=== PATIENT | female | born 1975 | race Caucasian/White ===

== ENCOUNTER 2017-04-16 13:19 | Emergency (ER) | payer MEDICAID ==
--- NOTE | 2017-04-16 13:40 | Emergency Department Record ---
History of Present Illness - General Chief Complaint: Chest Pain Stated Complaint: CHEST PAIN Time Seen by Provider: 04/16/17 13:27 Source: Patient Mode of Arrival: Ambulatory Limitations: No limitations - History of Present Illness Initial Comments: 41 yo female presents with palpitations, chest discomfort, and some cough. She is a smoker with asthma. He asthma has been well controlled. She has had symptoms the last 3 days. He gets palpitations in the form of a heavy or skipped beat. She has been having a tightness first on the right side of the chest and now it is on the left. She feels short of breath with walking up stairs. She noticed this in her home that is a two story house. She reports a family history of CAD with a brother with first NV at 31 with current stents, Mother with CAD with first NV at 42 and an uncle in his 30's (35), multiple cousins on Mom's side of the family with history of CAD or an NV. No history of cardiac testing. PCP is Dr Reno in [place]. Complaint: Other Onset/Timin -: Days(s) Pain Location: Substernal, Other Pain Radiation: Neck Quality: Sharp, Tightness Consistency: Intermittent Improves With: Nothing Worsens With: Exertion Anginal Symptoms: Nausea Other Symptoms: Cough - Related Data Home Medications Medication Instructions Recorded Confirmed Last Taken Albuterol Sulfate 0.083% [Neb] 1 inh INH ASDIR 04/16/17 04/16/17 Unknown Hyoscyamine Sulfate [Levbid] 0.375 mg PO ASDIR 04/16/17 04/16/17 Unknown Tiotropium [place] [Spiriva] 1 inh INH ASDIR 04/16/17 04/16/17 Unknown Allergies Allergy/AdvReac Type Severity Reaction Status Date / Time cefazolin sodium [From [facility]] Allergy RASH Verified 04/16/17 13:27 Travel Screening - Travel/Exposure Within Last 30 Days Have you traveled within the last 30 days?: No Review of Systems Constitutional: Denies: Chills, Fever, Malaise, Weakness Eyes: Denies: Eye discharge, Eye pain, Photophobia, Vision change ENT: Denies: Congestion, Throat pain Respiratory: Reports: Cough, Dyspnea. Denies: Hemoptysis, Stridor, Wheezes Cardiovascular: Reports: Chest pain, Palpitations. Denies: Arrhythmia, Syncope Endocrine: Denies: Fatigue, Polydipsia, Polyuria Gastrointestinal: Denies: Abdominal pain, Diarrhea, Nausea, Vomiting Genitourinary: Denies: Dysuria, Urgency Musculoskeletal: Reports: Arthralgia (right shoulder), Myalgia. Denies: Joint swelling Skin: Denies: Bruising, Change in color, Rash Neurological: Denies: Headache, Numbness, Weakness Psychiatric: Denies: Anxiety Hematological/Lymphatic: Denies: Blood Clots, Easy bleeding, Easy bruising, Swollen glands Past Medical History - SOCIAL HISTORY Smoking Status: Current every day smoker - RESPIRATORY Hx Respiratory Disorders: Yes Hx Asthma: Yes - CARDIOVASCULAR Hx Cardio Disorders: No - NEURO Hx Neuro Disorders: No - GI Hx GI Disorders: No - Hx Genitourinary Disorders: No - ENDOCRINE Hx Endocrine Disorders: No - MUSCULOSKELETAL Hx Musculoskeletal Disorders: No - PSYCH Hx Psych Problems: No - HEMATOLOGY/ONCOLOGY Hx Hematology/Oncology Disorders: Yes Hx Cancer: Yes (cervical) Family Medical History Hx Heart Disease: Mother, Brother/Sister, Grandparents Physical Exam - General General Appearance: Alert, Oriented x3, Cooperative, No acute distress Limitations: No limitations - Head Head exam: Normal inspection - Eye Eye exam: Normal appearance, PERRL. negative: Conjunctival injection, Periorbital swelling - ENT ENT exam: Normal exam, Mucous membranes moist Ear exam: Normal external inspection Nasal Exam: Normal inspection Mouth exam: Normal external inspection Teeth exam: Normal inspection Throat exam: Normal inspection - Neck Neck exam: Normal inspection, Full ROM. negative: Tenderness - Respiratory Respiratory exam: Normal lung sounds bilaterally. negative: Respiratory distress - Cardiovascular Cardiovascular Exam: Regular rate, Normal rhythm, Normal heart sounds Peripheral Pulses: 2+: Radial (R), Radial (L) - GI/Abdominal GI/Abdominal exam: Soft - Rectal Rectal exam: Deferred - exam: Deferred - Extremities Extremities exam: Normal inspection, Full ROM, Normal capillary refill. negative: Tenderness - Back Back exam: Reports: Normal inspection, Full ROM. Denies: Muscle spasm, Rash noted, Tenderness - Neurological Neurological exam: Alert, Normal gait, Oriented X3, Reflexes normal - Psychiatric Psychiatric exam: Normal affect, Normal mood. negative: Anxious, Depressed - Skin Skin exam: Dry, Intact, Normal color, Warm Course - Reevaluation(s) Reevaluation #1: The labs were reviewed. No acute changes on the CBC,CMP,Troponin,BNP The CXR was reviewed. 04/16/17 14:28 Reevaluation #2: I SW Dr Peterson of cardiology at [facility] He accepts the patient for transfer due to symptoms and strong family history He recommends NPO and start heparin until seen at [facility]. 04/16/17 14:44 Reevaluation #3: Pt informed to remain NPO Waiting for bed placement at [facility] CXR was read as negative for acute process. 04/16/17 15:27 Procedures - EKG Initial Date: 04/16/17 Time: 13:20 EKG: Abnormal EKG (poor r wave progression, NS inv t wave in V2) EKG Detail: NSR rate71, Intervals NL, [place] NL, ST no acute changes, Inverted T wave V2 Medical Decision Making - Lab Data Result diagrams: 04/16/17 13:30 04/16/17 13:48 Disposition Disposition: Transfer Clinical Impression: Chest pain Qualifiers: Chest pain type: unspecified Qualified Code(s): R07.9 - Chest pain, unspecified Disposition: Acute Care Hospital Transfer Transfer To: [facility] Reason For Transfer: chest pain with exertion Accepting Physician: Dr Peterson Time Discussed w/Accepting Physician: 14:47 Condition: (2) Stable Forms: Patient Portal Access Time of Disposition: 14:47
[2017-04-16] MEDS ORDERED: ASPIRIN 325 MG TABLET PO ONE (13:42)
[2017-04-16 13:51] LABS: BASO % 0.3 % (0-6); EOS % 0.7 % (0-6); GRAN % 61.9 % (47-80); HEMATOCRIT 39.7 % (35.0-47.0); HEMOGLOBIN 12.9 gm/dl (11.6-16.0); LYMPH % 27.9 % (16-45); MEAN CORPUSCULAR HEMOGLOBIN 29.3 pg (27-33); MEAN CORPUSCULAR HGB CONC 32.5 g/dl (32-36); MEAN PLATELET VOLUME 12.4 fl (7.4-10.4); MONO % 9.2 % (0-9); PLATELET COUNT 220 K/uL (130-400); RED BLOOD COUNT 4.41 M/uL (3.80-5.40); RED CELL DISTRIBUTION WIDTH 14.2 % (11.5-14.5); WHITE BLOOD COUNT W/O DIFF 6.8 K/uL (4.2-12.2)
[2017-04-16 14:05] LABS: ALB/GLOB RATIO 1.5 (1.1-1.8); ALBUMIN 4.5 gm/dL (3.5-5.0); ALKALINE PHOSPHATASE 59 U/L (38-126); ALT/SGPT 18 U/L (9-52); ANION GAP 5.8 (7-16); AST/SGOT 17 U/L (14-36); BILIRUBIN,TOTAL 0.68 mg/dL (0.2-1.3); BLOOD UREA NITROGEN 9 mg/dL (7-17); CARBON DIOXIDE 24.2 mmol/L (22-30); CREATINE PHOSPHOKINASE < 20 U/L (30-135); CREATININE 0.7 mg/dL (0.52-1.04); EST GLOMERULAR FILTRATION RATE > 60 ml/min; GLUCOSE,RANDOM 96 mg/dL (70-110); TOTAL PROTEIN 7.6 gm/dL (6.3-8.2)
[2017-04-16 14:06] LABS: INR 1.06; PARTIAL THROMBOPLASTIN TIME 28.6 SECONDS (24.5-39.1)
[2017-04-16 14:18] LABS: CKMB 0.2 ug/L (0-6); TROPONIN I < 0.012 ng/mL (0.00-0.034)
[2017-04-16] MEDS ORDERED: HEPARIN SODIUM/D5W 25,000 UNITS/500 ML BAG IV SCH (14:45)
[2017-04-16] MEDS ORDERED: HEPARIN SODIUM 1000 UNIT/1 ML 10ML VIAL IVP ONE (14:45)
--- NOTE | 2017-04-21 10:58 | RADIOLOGY REPORT ---
EXAM: CHEST, TWO VIEWS HISTORY: CHEST PAIN. TECHNIQUE: Frontal and lateral views of the chest were performed. FINDINGS: The heart size is normal. No pulmonary vascular congestion. No infiltrate or pleural effusion. The osseous structures are normal. IMPRESSION: NO ACUTE DISEASE PROCESS. JOB NUMBER: [id number] MTDD
== END 2017-04-16 16:41 | disposition short-term general hospital (02) ==
LOC: ER 13:19
DX: R07.2 Precordial pain (principal); R05 Cough; R06.02 Shortness of breath; M54.2 Cervicalgia; R11.0 Nausea; F17.210 Nicotine dependence, cigarettes, uncomplicated; Z82.49 Family history of ischemic heart disease and other diseases of the circulatory system
CPT/HCPCS: 71020; 80053; 82550; 82553; 83880; 84484; 85025; 85610; 85730; 93005; 93010; 96365; 96366; 96375; 99285

== ENCOUNTER 2018-05-14 02:48 | Emergency (ER) | payer SELFPAY ==
--- NOTE | 2018-05-14 03:12 | Emergency Department Record ---
History of Present Illness - General Chief complaint: Extremity Problem Stated complaint: "FEEL LIKE STUFF IS MOVING AROUND IN MY LEG" Time Seen by Provider: 05/14/18 03:07 Source: Patient Mode of Arrival: wheeled walker Limitations: No limitations - History of Present Illness Initial comments: 42 yo female presents to ED for evaluation of possible DVT to the left posterior leg. Patient reports the sensation that "something is moving below the skin of her left posterior leg for the past several days and is concerned that she may have a DVT. Patient denies denies fevers, chills, or trauma to the left lower extremity, denies previous DVT or swelling to the lower extremity , and denies health problems at her baseline. MD Complaint: Extremity pain Onset/Timin -: Month(s) Location: Left History of Same: No -: Yes Myalgia Radiation: None Quality: Other Consistency: Constant Improves with: Nothing Worsens with: Nothing Associated Symptoms: Denies other symptoms - Related Data Home Medications Medication Instructions Recorded Confirmed Last Taken Citicoline Sodium [Cerenx] 500 mg PO DAILY 05/14/18 05/14/18 Unknown Cyanocobalamin (Vitamin B-12) 1,000 mcg PO DAILY 05/14/18 05/14/18 Unknown [Vitamin B-12] Vitamin E Mixed [Vitamin E] 1,000 unit PO DAILY 05/14/18 05/14/18 Unknown Allergies Allergy/AdvReac Type Severity Reaction Status Date / Time cefazolin sodium [From [facility]] Allergy RASH Verified 04/16/17 13:27 Travel Screening - Travel/Exposure Within Last 30 Days Have you traveled within the last 30 days?: No - Travel/Exposure Within Last Year Have you traveled outside the [place] in the last year?: No - Additonal Travel Details Have you been exposed to anyone with a communicable illness?: No - Travel Symptoms Symptom Screening: None Review of Systems Constitutional: Denies: Chills, Fever, Malaise, Night sweats Eyes: Denies: Eye discharge, Eye pain ENT: Denies: Congestion, Ear pain, Epistaxis Respiratory: Denies: Cough, Dyspnea Cardiovascular: Denies: Chest pain, Dyspnea on exertion Endocrine: Denies: Fatigue, Heat or cold intolerance Gastrointestinal: Denies: Abdominal pain, Nausea, Vomiting Genitourinary: Denies: Incontinence, Retention Musculoskeletal: Reports: Other. Denies: Arthralgia, Back pain, Gout, Joint swelling Skin: Denies: Bruising, Change in color Neurological: Denies: Abnormal gait, Confusion, Headache, Seizure Psychiatric: Denies: Anxiety Hematological/Lymphatic: Denies: Anemia, Blood Clots Past Medical History - SOCIAL HISTORY Smoking Status: Current every day smoker Alcohol Use: None Drug Use Detail:: Marijuana - RESPIRATORY Hx Respiratory Disorders: Yes Hx Asthma: Yes - CARDIOVASCULAR Hx Cardio Disorders: No - NEURO Hx Neuro Disorders: No - GI Hx GI Disorders: No - Hx Genitourinary Disorders: No - ENDOCRINE Hx Endocrine Disorders: No - MUSCULOSKELETAL Hx Musculoskeletal Disorders: No Comment:: osteoarthritis - PSYCH Hx Psych Problems: No - HEMATOLOGY/ONCOLOGY Hx Hematology/Oncology Disorders: Yes Hx Cancer: Yes (cervical) Comment:: "working on genetic testing at [facility] [place] and of for distonia" Family Medical History Any Significant Family History?: No Hx Heart Disease: Mother, Brother/Sister, Grandparents Physical Exam - General General Appearance: Alert, Oriented x3, Cooperative, No acute distress Limitations: No limitations - Head Head exam: Atraumatic, Normocephalic, Normal inspection Head exam detail: negative: Abrasion, Contusion, Cole's sign, General tenderness, Hematoma, Laceration - Eye Eye exam: Normal appearance. negative: Conjunctival injection, Periorbital swelling, Periorbital tenderness, Scleral icterus - ENT Ear exam: negative: Auricular hematoma, Auricular trauma Nasal Exam: negative: Active bleeding, Discharge, Dried blood, Foreign body Mouth exam: negative: Drooling, Laceration, Muffled voice, Tongue elevation - Neck Neck exam: Normal inspection. negative: Meningismus, Tenderness - Respiratory Respiratory exam: Normal lung sounds bilaterally. negative: Rales, Respiratory distress, Rhonchi, Stridor - Cardiovascular Cardiovascular Exam: Regular rate, Normal rhythm, Normal heart sounds - GI/Abdominal GI/Abdominal exam: Soft. negative: Pulsatile mass, Rebound, Rigid, Tenderness - Rectal Rectal exam: Deferred - exam: Deferred - Extremities Extremities exam: Normal inspection. negative: Calf tenderness, Pedal edema, Tenderness - Back Back exam: Denies: CVA tenderness (R), CVA tenderness (L) - Neurological Neurological exam: Alert, Normal gait, Oriented X3 - Psychiatric Psychiatric exam: Anxious - Skin Skin exam: Normal color. negative: Abrasion Type of lesion: negative: abrasion Course Vital Signs 05/14/18 03:05 Temperature 98.2 F Pulse Rate [ 96 H Pulse Ox Probe] Respiratory 20 Rate Blood Pressure 142/107 [Left Arm] Pulse Ox 97 - Reevaluation(s) Reevaluation #1: 05/14/18 03:38 D-dimer is negative for DVT. Patient was updated on her result, and appears negative for an acute process at this time. Disposition Disposition: Discharge Clinical Impression: Formication Disposition: Home, Self-Care Condition: (2) Stable Additional Instructions: Return to ED if your symptoms worsen or if you have any concerns. Follow-up with your family doctor in 3-5 days as directed. Forms: Patient Portal Access Time of Disposition: 03:39 Quality - Quality Measures Quality Measures: N/A - Blood Pressure Screening Does Patient Have Any of the Following: No Blood Pressure Classification: Pre-Hypertensive BP Reading Systolic Measurement: 126 Diastolic Measurement: 87 Screening for High Blood Pressure: < Pre-Hypertensive BP, F/U Documented > [ G8950] Pre-Hypertensive Follow-up Interventions: Referral to alternative/primary care provider.
== END 2018-05-14 03:43 | disposition home or self-care (01) ==
LOC: ER 02:48
DX: R20.2 Paresthesia of skin (principal); M79.662 Pain in left lower leg; F17.210 Nicotine dependence, cigarettes, uncomplicated
CPT/HCPCS: 85379; 99283

== ENCOUNTER 2018-05-14 12:35 | Emergency (ER) | payer SELFPAY ==
[2018-05-14] MEDS: LORAZEPAM 2 MG/ML VIAL IV ONE (13:29)
[2018-05-14 13:43] LABS: BASO % 0.4 % (0-6); EOS % 1.2 % (0-6); HEMOGLOBIN 13.4 gm/dl (11.6-16.0); MEAN CELL VOLUME 88.9 fl (81-97); MEAN CORPUSCULAR HEMOGLOBIN 29.8 pg (27-33); MEAN CORPUSCULAR HGB CONC 33.5 g/dl (32-36); MEAN PLATELET VOLUME 12.9 fl (7.4-10.4); MONO % 11.4 % (0-9); PLATELET COUNT 171 K/uL (130-400); RED CELL DISTRIBUTION WIDTH 13.1 % (11.5-14.5); WHITE BLOOD COUNT W/O DIFF 4.8 K/uL (4.2-12.2)
[2018-05-14 13:57] LABS: BLOOD UREA NITROGEN 8 mg/dL (6-20); CREATININE 0.6 mg/dL (0.5-0.9); EST GLOMERULAR FILTRATION RATE > 60 mL/min
[2018-05-14 14:00] LABS: GLUCOSE,RANDOM 94 mg/dL (74-109)
[2018-05-14 17:05] LABS: THYROXINE (T4) 7.09 ug/dL (4.5-11.7)
--- NOTE | 2018-05-14 17:27 | Emergency Department Record ---
Anxiety - General Chief Complaint: Anxiety Stated Complaint: POSS STROKE Time Seen by Provider: 05/14/18 13:05 Source: Patient, Family Mode of Arrival: Wheelchair Limitations: No limitations - History of Present Illness Initial Comments: pt c/o insomnia, difficulty talking, anxiety. she is being worked up for chorea and dystonia MD Complaint: Anxiety -: Unknown Symptoms: Dry mouth, Extremity numbness/tingling, Other Place: Home Severity: Moderate Quality: Constant Provoking factors: Emotional stress Improves With: Nothing Worsens With: Thinking about event Associated symptoms: Other - Related Data Home Medications: Home Medications Medication Instructions Recorded Confirmed Last Taken Melatonin 2.5 mg PO ASDIR 05/14/18 05/14/18 05/13/18 Allergies/Adverse Reactions: Allergies Allergy/AdvReac Type Severity Reaction Status Date / Time cefazolin sodium [From [facility]] Allergy RASH Verified 05/14/18 12:51 Travel Screening - Travel/Exposure Within Last 30 Days Have you traveled within the last 30 days?: No - Travel/Exposure Within Last Year Have you traveled outside the [place] in the last year?: No - Travel Symptoms Symptom Screening: None Review of Systems Reviewed: No additional complaints except as noted below Constitutional: Reports: As per HPI. Denies: Chills, Fever, Malaise, Night sweats, Weakness, Weight change Eyes: Reports: As per HPI. Denies: Eye discharge, Eye pain, Photophobia, Vision change ENT: Reports: As per HPI. Denies: Congestion, Dental pain, Ear pain, Epistaxis , Hearing loss, Throat pain Respiratory: Reports: As per HPI. Denies: Cough, Dyspnea, Hemoptysis, Stridor, Wheezes Cardiovascular: Reports: As per HPI. Denies: Arrhythmia, Chest pain, Dyspnea on exertion, Edema, Murmurs, Orthopnea, Palpitations, Paroxysmal nocturnal dyspnea, Rheumatic Fever, Syncope Endocrine: Reports: As per HPI. Denies: Fatigue, Heat or cold intolerance, Polydipsia, Polyuria Gastrointestinal: Reports: As per HPI. Denies: Abdominal pain, Constipation, Diarrhea, Hematemesis, Hematochezia, Melena, Nausea, Vomiting Genitourinary: Reports: As per HPI. Denies: Abnormal menses, Discharge, Dyspareunia, Dysuria, Frequency, Hematuria, Incontinence, Retention, Urgency Musculoskeletal: Reports: As per HPI. Denies: Arthralgia, Back pain, Gout, Joint swelling, Myalgia, Neck pain Skin: Reports: As per HPI. Denies: Bruising, Change in color, Change in hair/ nails, Lesions, Pruritus, Rash Neurological: Reports: As per HPI, Abnormal gait, Paresthesias, Tremors. Denies : Confusion, Headache, Numbness, Seizure, Tingling, Vertigo, Weakness Psychiatric: Reports: As per HPI, Anxiety. Denies: Auditory hallucinations, Depression, Homicidal thoughts, Suicidal thoughts, Visual hallucinations Hematological/Lymphatic: Reports: As per HPI. Denies: Anemia, Blood Clots, Easy bleeding, Easy bruising, Swollen glands Past Medical History - SOCIAL HISTORY Smoking Status: Current every day smoker Alcohol Use: None Drug Use: Heavy Drug Use Detail:: Marijuana - RESPIRATORY Hx Respiratory Disorders: Yes Hx Asthma: Yes - CARDIOVASCULAR Hx Cardio Disorders: No - NEURO Hx Neuro Disorders: No - GI Hx GI Disorders: No - Hx Genitourinary Disorders: No - ENDOCRINE Hx Endocrine Disorders: No - MUSCULOSKELETAL Hx Musculoskeletal Disorders: No Comment:: osteoarthritis - PSYCH Hx Psych Problems: No - HEMATOLOGY/ONCOLOGY Hx Hematology/Oncology Disorders: Yes Hx Cancer: Yes (cervical) Comment:: "working on genetic testing at [facility] [place] and [facility] for distonia" Family Medical History Any Significant Family History?: Yes Hx Heart Disease: Mother, Brother/Sister, Grandparents Physical Exam - General General Appearance: Alert, Oriented x3, Cooperative, Mild distress - Head Head exam: Normal inspection - Eye Eye exam: Normal appearance, PERRL, EOMI Pupils: Normal accommodation - ENT ENT exam: Normal exam, Mucous membranes moist, Normal external ear exam, Normal orophraynx Ear exam: Normal external inspection. negative: External canal tenderness Nasal Exam: Normal inspection. negative: Discharge, Sinus tenderness Mouth exam: Normal external inspection, Tongue normal Teeth exam: Normal inspection. negative: Dental caries Throat exam: Normal inspection. negative: Tonsillar erythema, Tonsillar exudate - Neck Neck exam: Normal inspection, Full ROM. negative: Tenderness - Respiratory Respiratory exam: Normal lung sounds bilaterally. negative: Respiratory distress - Cardiovascular Cardiovascular Exam: Normal rhythm, Normal heart sounds, Tachycardia - GI/Abdominal GI/Abdominal exam: Soft, Normal bowel sounds. negative: Tenderness - Rectal Rectal exam: Deferred - exam: Deferred - Extremities Extremities exam: Normal inspection, Full ROM, Normal capillary refill. negative: Tenderness - Back Back exam: Reports: Normal inspection, Full ROM. Denies: Muscle spasm, Rash noted, Tenderness - Neurological Neurological exam: Alert, CN II-XII intact, Normal gait, Oriented X3 - Psychiatric Psychiatric exam: Normal affect, Normal mood - Skin Skin exam: Dry, Intact, Normal color, Warm Course Vital Signs 05/14/18 05/14/18 12:54 15:34 Temperature 97.6 F Pulse Rate 109 H Pulse Rate [ 99 H Pulse Ox Probe] Respiratory 18 16 Rate Blood Pressure 170/99 Blood Pressure 119/82 [Left Arm] Pulse Ox 98 99 - Reevaluation(s) Reevaluation #1: 05/14/18 17:28 pt feels better. she slept for a couple of hours Medical Decision Making - Lab Data Result diagrams: 05/14/18 13:33 05/14/18 13:33 Lab Results 05/14/18 05/14/18 05/14/18 Range/Units 13:33 13:33 13:33 WBC 4.8 (4.2-12.2) K/uL RBC 4.50 (3.80-5.40) M/uL Hgb 13.4 (11.6-16.0) gm/dl Hct 40.0 (35.0-47.0) % MCV 88.9 (81-97) fl MCH 29.8 (27-33) pg MCHC 33.5 (32-36) g/dl RDW 13.1 (11.5-14.5) % Plt Count 171 (130-400) K/uL MPV 12.9 H (7.4-10.4) fl Gran % 49.0 (47-80) % Lymphocytes % 38.0 (16-45) % Monocytes % 11.4 H (0-9) % Eosinophils % 1.2 (0-6) % Basophils % 0.4 (0-6) % Sodium 144 (136-145) mmol/L Potassium 3.3 L (3.4-4.5) mmol/L Chloride 99 (98-107) mmol/L Carbon Dioxide 23.0 (22-29) mmol/L Anion Gap 22.0 H (7-16) BUN 8 (6-20) mg/dL Creatinine 0.6 (0.5-0.9) mg/dL Estimated GFR > 60 mL/min Random Glucose 94 (74-109) mg/dL Calcium 9.7 (8.6-10.0) mg/dL Thyroxine (T4) 7.09 (4.5-11.7) ug/dL T3 Uptake 37 H (25-35) % Disposition Disposition: Discharge Clinical Impression: Anxiety Disposition: Home, Self-Care Condition: (1) Good Instructions: Anxiety (ED) Additional Instructions: follow up with family doctor. return sooner if worse. rest Quality - Quality Measures Quality Measures: N/A - Blood Pressure Screening Does Patient Have Any of the Following: No Blood Pressure Classification: Hypertensive Reading Systolic Measurement: 170 Diastolic Measurement: 99 Screening for High Blood Pressure: < First Hypertensive BP, F/U Documented > [ G8950] First Hypertensive Follow-up Interventions: Follow-up with rescreen GT 1 day and LT 4 weeks.
[2018-05-14 17:30] LABS: URINE APPEARANCE CLEAR; URINE BILIRUBIN MODERATE (NEGATIVE); URINE BLOOD NEGATIVE (NEGATIVE); URINE COLOR YELLOW; URINE GLUCOSE (UA) NEGATIVE (NEGATIVE); URINE KETONE 40 mg/dL (NEGATIVE); URINE LEUKOCYTE ESTERASE NEGATIVE (NEGATIVE); URINE NITRITE NEGATIVE (NEGATIVE); URINE PROTEIN TRACE (NEGATIVE)
[2018-05-14] MEDS: POTASSIUM CHLORIDE 10 MEQ TAB PO ONE (17:30)
[2018-05-14 17:49] LABS: TOTAL PROTEIN 7.3 g/dL (6.6-8.7)
[2018-05-14 17:54] LABS: ALBUMIN 4.5 g/dL (4.0-5.0); ALKALINE PHOSPHATASE 66 U/L (35-104); ALT/SGPT 14 U/L (<33); AST/SGOT 19 U/L (10.0-35.0)
[2018-05-14 17:56] LABS: BILIRUBIN,DIRECT < 0.2 mg/dL (0-0.3)
--- NOTE | 2018-05-14 22:37 | CT SCAN REPORT ---
EXAM: CT SCAN HEAD WO CONTRAST HISTORY: 42-YEAR-OLD FEMALE WITH SPEECH DISTURBANCE AND SYNCOPE. WEAKNESS. SLURRED SPEECH. TECHNIQUE: Routine noncontrast CT images of the head were obtained. FINDINGS: The ventricles, basal cisterns, and sulci are of normal size, shape, and configuration. No midline shift or mass effect. Grubbs-white differentiation well-maintained throughout both cerebral hemispheres without evidence for acute ischemia. No intracranial mass or hemorrhage. Mild scattered paranasal sinus mucosal thickening. Extensive periapical lucency right maxillary first and second premolars consistent with odontogenic disease. IMPRESSION: NO ACUTE INTRACRANIAL ABNORMALITY. JOB NUMBER: [id number] [facility]
== END 2018-05-14 18:06 | disposition home or self-care (01) ==
LOC: ER 12:35
DX: F41.9 Anxiety disorder, unspecified (principal); G47.00 Insomnia, unspecified; R47.89 Other speech disturbances; F17.210 Nicotine dependence, cigarettes, uncomplicated
CPT/HCPCS: 70450; 80048; 80076; 81003; 84436; 84443; 84479; 85025; 96374; 99284